=== PATIENT | female | born 1945 | race Caucasian/White ===

== ENCOUNTER 2017-02-21 03:55 | Observation (INO) | payer MEDICARE, BC ==
[2017-02-21] MEDS ORDERED: Lactated Ringers 1,000 ML IV ONE ×2 (04:40→06:31)
--- NOTE | 2017-02-21 04:51 | EDM.PDOC ---
ED HPI GENERAL MEDICAL PROBLEM - General Chief Complaint: Syncope Stated Complaint: WEAKNESS Time Seen by Provider: 02/21/17 04:30 Source of Information: Reports: Patient, Old Records, RN History Limitations: Reports: No Limitations - History of Present Illness INITIAL COMMENTS - FREE TEXT/NARRATIVE: 71 yo female who lives alone fell out of bed tonight and initially was unable to get herself up. Really did not incur any significant injuries in the fall. Was brought into the ED by a friend. States she has been unsteady and dizzy since yesterday. Is normally alert and oriented. No nausea or true vertigo. Had a COPELAND yesterday that resolved with Aleve. Onset: Gradual Onset Date: 02/20/17 Duration: Hour(s):, Constant Location: Reports: Head, Other (Mild low back pain, not new) Quality: Reports: Ache (low back) Severity: Moderate (dizziness) Improves with: Reports: Immobilization Worsens with: Reports: Movement Context: Reports: Other (uncertain cause of dizziness) Associated Symptoms: Reports: Headaches (yesterday, gone now.), Shortness of Breath (mild). 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 below) (none) denies when asked Pain Score (Numeric/FACES): 0 - Related Data Allergies Allergy/AdvReac Type Severity Reaction Status Date / Time celecoxib [From Celebrex] Allergy Unknown UNKNOWN Verified 02/21/17 04:12 Penicillins Allergy Unknown UNKNOWN Verified 02/21/17 04:12 citalopram [From Celexa] Allergy Rash Verified 02/21/17 12:03 Home Meds: Home Meds Carboxymethylcellulose Sodium [Refresh Tears] 1 appful OP ASDIRECTED PRN [History] ClonazePAM [KlonoPIN] 0.5 mg PO DAILY 02/21/17 [History] ClonazePAM [KlonoPIN] 1 mg PO BID PRN 02/21/17 [History] Desvenlafaxine [Pristiq] 50 mg PO 08,12 02/21/17 [History] Gabapentin [Neurontin] 900 mg PO TID 02/21/17 [History] L.acidoph,Paracasei, B.lactis [Probiotic] 1 each PO DAILY 02/21/17 [History] Loperamide [Imodium] 2 mg PO ASDIRECTED PRN 02/21/17 [History] Loratadine 10 mg PO DAILY 02/21/17 [History] Mirtazapine 30 mg PO BEDTIME 02/21/17 [History] Naproxen Sodium [Aleve] 220 mg PO BID 02/21/17 [History] risperiDONE [RisperiDAL] 1.5 mg PO 1200 02/21/17 [History] Social & Family History - Tobacco Use Smoking Status *Q: Never Smoker Second Hand Smoke Exposure: No - Caffeine Use Caffeine Use: Reports: Coffee - Recreational Drug Use Recreational Drug Use: No ED ROS GENERAL - Review of Systems Review Of Systems: See Below Constitutional: Denies: Fever, Chills HEENT: Reports: No Symptoms Respiratory: Reports: Shortness of Breath (mild). 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) Ears: Normal External Exam, Normal Canal, Normal TMs, Other (hearing poor) Nose: Normal Inspection, Normal Mucosa, No Blood Throat/Mouth: Normal Inspection, Normal Lips, Normal Oropharynx, Normal Voice, No Airway Compromise Head Exam: Atraumatic, Normocephalic Neck: Normal Inspection, Supple, Non-Tender Respiratory/Chest: No Respiratory Distress, Lungs Clear, Normal Breath Sounds, No Accessory Muscle Use Cardiovascular: Regular Rate, Rhythm, No Edema GI/Abdominal: Normal Bowel Sounds, Soft, Non-Tender, No Distention Neurological: Alert, Normal Mood/Affect, CN II-XII Intact, No Motor/Sensory Deficits, Oriented x 3, Other (Mild generalized weakness without focal deficits. ) Back Exam: Normal Inspection. No: CVA Tenderness (R), CVA Tenderness (L) Extremities: Normal Inspection, Normal Range of Motion, Non-Tender, No Pedal Edema Psychiatric: Normal Affect, Normal Mood Skin Exam: Warm, Dry, Intact, Normal Color, No Rash Course - Vital Signs Last Recorded V/S: Last Vital Signs Temp 36.8 C 02/21/17 10:05 Pulse 96 02/21/17 10:05 Resp 17 02/21/17 10:05 BP 135/59 L 02/21/17 10:05 Pulse Ox 93 L 02/21/17 10:05 Orthostatic Blood Pressure [ 98/52 Standing] Orthostatic Blood Pressure [ 94/40 Side, Right] Orthostatic Blood Pressure [ 98/55 Sitting] Orthostatic Blood Pressure [ 94/40 Supine] - Orders/Labs/Meds Orders: Active Orders 24 hr Category Date Time Status Patient Status Manage Transfer [TRANSFER] Routine ADT 02/21/17 09:42 Active Head wo Cont [CT] Stat Exams 02/21/17 08:07 Taken CULTURE URINE [RM] Stat Lab 02/21/17 07:25 Received VALPROIC ACID [REF] Stat Lab 02/21/17 04:55 Received Sodium Chloride 0.9% [Saline Flush] Med 02/21/17 04:40 Active 10 ml FLUSH ASDIRECTED PRN Saline Lock Insert [OM.PC] Routine Oth 02/21/17 04:40 Ordered Medication Orders Sodium Chloride (Normal Saline) 1,000 mls @ 100 mls/hr IV ASDIRECTED MARGRET Last Admin: 02/21/17 11:26 Dose: 100 mls/hr Sodium Chloride (Saline Flush) 10 ml FLUSH ASDIRECTED PRN PRN Reason: Keep Vein Open Last Admin: 02/21/17 11:25 Dose: 10 ml Trimethoprim/Sulfamethoxazole (Septra Ds) 1 tab PO BID [facility] Labs: Laboratory Tests 02/21/17 02/21/17 02/21/17 Range/Units 04:55 04:55 07:25 WBC 13.2 H (4.5-12.0) X10-3/uL RBC 4.57 (3.23-5.20) x10(6)uL Hgb 13.5 (11.5-15.5) g/dL Hct 39.6 (30.0-51.3) % MCV 86.7 (80-96) fL MCH 29.6 (27.7-33.6) pg MCHC 34.2 (32.2-35.4) g/dL RDW 12.2 (11.5-15.5) % Plt Count 235 (125-369) X10(3)uL Sodium 137 (135-145) mmol/L Potassium 4.0 (3.5-5.3) mmol/L Chloride 103 (100-110) mmol/L Carbon Dioxide 25 (23-29) mmol/L BUN 24 H D (8-23) mg/dL Creatinine 1.4 H (0.6-1.3) mg/dL Est Cr Clr Drug Dosing TNP Estimated GFR (MDRD) 37 L (>60) BUN/Creatinine Ratio 17.1 (9-20) Glucose 133 H (80-116) mg/dL Calcium 9.4 (8.6-10.2) mg/dL Urine Color Yellow (YELLOW) Urine Appearance Cloudy (CLEAR) Urine pH 5.0 (5.0-6.5) Ur Specific [place] 1.020 (1.010-1.025) Urine Protein Trace (NEGATIVE) mg/dL Urine Glucose (UA) Normal (NEGATIVE) mg/dL Urine Ketones 15 H (NEGATIVE) mg/dL Urine Occult Blood Negative (NEGATIVE) Urine Nitrite Positive H (NEGATIVE) Urine Bilirubin Small H (NEGATIVE) Urine Urobilinogen Normal (NEGATIVE) mg/dL Ur Leukocyte Esterase Large H (NEGATIVE) Urine RBC 0-5 (0) Urine WBC >100 H (0) Ur Squamous Epith Cells Few H (NS,R,O) Urine Bacteria Many H (NS) Meds: Medications Generic Name Dose Route Start Last Admin Trade Name Freq PRN Reason Stop Dose Admin Sodium Chloride 1,000 mls @ 100 mls/hr 02/21/17 10:45 02/21/17 11:26 Normal Saline IV 100 mls/hr ASDIRECTED MARGRET Administration Sodium Chloride 10 ml 02/21/17 04:40 02/21/17 11:25 Saline Flush FLUSH 10 ml ASDIRECTED PRN Administration Keep Vein Open Trimethoprim/Sulfamethoxazole 1 tab 02/21/17 21:00 Septra Ds PO BID MARGRET Discontinued Medications Generic Name Dose Route Start Last Admin Trade Name Freq PRN Reason Stop Dose Admin Lactated Ringer's 1,000 mls @ 1,000 mls/hr 02/21/17 04:40 02/21/17 05:05 Ringers, Lactated IV 02/21/17 05:39 1,000 mls/hr BOLUS ONE Administration Lactated Ringer's 1,000 mls @ 999 mls/hr 02/21/17 06:31 02/21/17 06:34 Ringers, Lactated IV 02/21/17 07:31 999 mls/hr BOLUS ONE Administration Trimethoprim/Sulfamethoxazole 1 tab 02/21/17 08:09 02/21/17 09:37 Septra Ds PO 02/21/17 08:10 1 tab ONETIME ONE Administration - Radiology Interpretation Free Text/Narrative:: CXR-negative Head CT-No acute changes Dr. Mccrary to admit. CT Results Date: 02/21/17 CT Results Time: 09:30 - Re-Assessments/Exams Free Text/Narrative Re-Assessment/Exam: 02/21/17 09:34 After 2 liters of LR patient is only slightly improved with her gait, still unsteady. Head CT scan planned. Departure - Departure Time of Disposition: 10:10 Disposition: Refer to Observation Condition: Fair Clinical Impression: Ataxia, Dizziness UTI (urinary tract infection) Qualifiers: Urinary tract infection type: site unspecified Hematuria presence: without hematuria Qualified Code(s): N39.0 - Urinary tract infection, site not specified - Discharge Information - My Orders Last 24 Hours: My Active Orders 02/21/17 04:40 Sodium Chloride 0.9% [Saline Flush] 10 ml FLUSH ASDIRECTED PRN Saline Lock Insert [OM.PC] Routine 02/21/17 04:55 VALPROIC ACID [REF] Stat 02/21/17 07:25 CULTURE URINE [RM] Stat 02/21/17 08:07 Head wo Cont [CT] Stat 02/21/17 09:42 Patient Status Manage Transfer [TRANSFER] Routine - Assessment/Plan Last 24 Hours: My Active Orders 02/21/17 04:40 Sodium Chloride 0.9% [Saline Flush] 10 ml FLUSH ASDIRECTED PRN Saline Lock Insert [OM.PC] Routine 02/21/17 04:55 VALPROIC ACID [REF] Stat 02/21/17 07:25 CULTURE URINE [RM] Stat 02/21/17 08:07 Head wo Cont [CT] Stat 02/21/17 09:42 Patient Status Manage Transfer [TRANSFER] Routine
[2017-02-21] MEDS ORDERED: Sulfamethoxazole/Trimethoprim 800-160 MG Tab PO ONE (08:09)
--- NOTE | 2017-02-21 10:20 | CR ---
INDICATION: Hypoxia. CHEST: An AP upright wheelchair view of the chest revealed the heart to be normal in size. The aorta is somewhat tortuous. Curvilinear density at the left lung base may be fibrotic in nature. Linear atelectatic change of minimal degree could be present also. A definite active infiltrate or effusion was not identified. No evidence of CHF is seen. Evidence of exogenous obesity is noted. IMPRESSION: No definite acute process. Minimal linear atelectasis versus fibrosis at the left lung base. MTDD
[2017-02-21] MEDS: Sodium Chloride 0.9% 10 ML Syringe FLUSH PRN ×2 (11:25→13:50)
[2017-02-21] MEDS: Sodium Chloride 0.9% 1,000 ML IV SCH ×2 (11:26→23:51)
[2017-02-21] MEDS ORDERED: ClonazePAM 1 MG Tab PO PRN (16:41)
[2017-02-21] MEDS ORDERED: Loperamide 2 MG Cap *PTOM PO PRN (16:41)
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
[2017-02-21] MEDS: Gabapentin 300 MG Cap *PTOM PO SCH (20:22)
[2017-02-21] MEDS: Sulfamethoxazole/Trimethoprim 800-160 MG Tab PO SCH (20:22)
[2017-02-21] MEDS: Tolterodine 2 MG Tab PO SCH (20:22)
[2017-02-21] MEDS ORDERED: Mirtazapine 30 MG Tab *PTOM PO SCH (21:00)
[2017-02-22 07:51] VITALS: BP 132/61
[2017-02-22] MEDS: DESVENLAFAXINE 50 MG PO SCH ×2 (08:03→13:31)
[2017-02-22] MEDS: Tolterodine 2 MG Tab PO SCH (08:04)
[2017-02-22] MEDS: Gabapentin 300 MG Cap *PTOM PO SCH (08:06)
[2017-02-22] MEDS: Sulfamethoxazole/Trimethoprim 800-160 MG Tab PO SCH (08:06)
--- NOTE | 2017-02-22 08:09 | PCM.PN ---
- General Info Date of Service: 02/22/17 Admission Dx/Problem (Free Text): Patient without complaints today. She states her weakness is just about gone. She denies being dizzy, chest pain, fevers or chills. She denies dysuria, pyuria , hematuria. - Patient Data Vitals - Most Recent: Last Vital Signs Temp 98.6 F 02/22/17 07:49 Pulse 79 02/22/17 07:49 Resp 20 02/22/17 07:49 BP 132/61 02/22/17 07:49 Pulse Ox 96 02/22/17 07:49 Weight - Most Recent: 194 lb 9.6 oz I&O - Last 24 Hours: Intake & Output 02/21/17 02/22/17 02/22/17 22:59 06:59 14:59 Intake Total 240 890 Balance 240 890 Lab Results Last 24 Hours: Laboratory Results - last 24 hr 02/22/17 Range/Units 06:50 WBC 12.3 H (4.5-12.0) X10-3/uL RBC 4.38 (3.23-5.20) x10(6)uL Hgb 12.9 (11.5-15.5) g/dL Hct 38.2 (30.0-51.3) % MCV 87.2 (80-96) fL MCH 29.5 (27.7-33.6) pg MCHC 33.8 (32.2-35.4) g/dL RDW 12.4 (11.5-15.5) % Plt Count 220 (125-369) X10(3)uL MPV 8.9 (7.4-10.4) fL Neut % (Auto) 65.6 (46-82) % Lymph % (Auto) 20.6 (13-37) % [place] % (Auto) 11.2 (4-12) % Eos % (Auto) 2 (1.0-5.0) % Baso % (Auto) 1 (0-2) % Neut # (Auto) 8.1 (1.6-8.3) # Lymph # (Auto) 2.5 (0.6-5.0) # [place] # (Auto) 1.4 H (0.0-1.3) # Eos # (Auto) 0.2 (0.0-0.8) # Baso # (Auto) 0.1 (0.0-0.2) # Med Orders - Current: Current Medications Clonazepam (Klonopin) 0.5 mg PO DAILY [facility] Clonazepam (Klonopin) 1 mg PO BID PRN PRN Reason: Anxiety Desvenlafaxine Succinate (Pristiq) 50 mg PO 08, [facility] Last Admin: 02/22/17 08:03 Dose: 50 mg Gabapentin (Neurontin) 900 mg PO TID [facility] Last Admin: 02/22/17 08:06 Dose: 900 mg Sodium Chloride (Normal Saline) 1,000 mls @ 100 mls/hr IV ASDIRECTED [facility] Last Admin: 02/21/17 23:51 Dose: 100 mls/hr Loperamide HCl (Imodium) 2 mg PO ASDIRECTED PRN PRN Reason: Diarrhea Loratadine (Claritin) 10 mg PO DAILY [facility] Last Admin: 02/22/17 08:04 Dose: 10 mg Mirtazapine (Remeron) 30 mg PO BEDTIME [facility] Last Admin: 02/21/17 20:22 Dose: 30 mg Naproxen (Naproxen Sodium) 220 mg PO BID [facility] Last Admin: 02/22/17 08:06 Dose: 220 mg Acidophilus Probiotic 100 Million Ptom 1 each PO DAILY [facility] Last Admin: 02/22/17 08:05 Dose: 1 each Risperidone (Risperidal) 1.5 mg PO 1200 [facility] Sodium Chloride (Saline Flush) 10 ml FLUSH ASDIRECTED PRN PRN Reason: Keep Vein Open Last Admin: 02/21/17 13:50 Dose: 10 ml Tolterodine Tartrate (Detrol) 2 mg PO BID [facility] Last Admin: 02/22/17 08:04 Dose: 2 mg Trimethoprim/Sulfamethoxazole (Septra Ds) 1 tab PO BID [facility] Last Admin: 02/22/17 08:06 Dose: 1 tab Discontinued Medications Lactated Ringer's (Ringers, Lactated) 1,000 mls @ 1,000 mls/hr IV BOLUS ONE Stop: 02/21/17 05:39 Last Admin: 02/21/17 05:05 Dose: 1,000 mls/hr Lactated Ringer's (Ringers, Lactated) 1,000 mls @ 999 mls/hr IV BOLUS ONE Stop: 02/21/17 07:31 Last Admin: 02/21/17 06:34 Dose: 999 mls/hr Trimethoprim/Sulfamethoxazole (Septra Ds) 1 tab PO ONETIME ONE Stop: 02/21/17 08:10 Last Admin: 02/21/17 09:37 Dose: 1 tab - Exam General: Alert, Oriented, Cooperative Psy/Mental Status: Alert, Normal Affect, Normal Mood - Problem List & Annotations (1) Hyperglycemia SNOMED Code(s): 36397327 Code(s): R73.9 - HYPERGLYCEMIA, UNSPECIFIED Status: Acute Current Visit: Yes (2) Acute renal failure SNOMED Code(s): 49111676 Code(s): N17.9 - ACUTE KIDNEY FAILURE, UNSPECIFIED Status: Acute Current Visit: Yes (3) Dehydration SNOMED Code(s): 37336344 Code(s): E86.0 - DEHYDRATION Status: Acute Current Visit: Yes (4) Palliative care status SNOMED Code(s): 923209141 Code(s): Z51.5 - ENCOUNTER FOR PALLIATIVE CARE Status: Acute Current Visit: Yes (5) Dizziness SNOMED Code(s): 575207813, 034174038 Code(s): R42 - DIZZINESS AND GIDDINESS Status: Acute Current Visit: Yes (6) UTI (urinary tract infection) SNOMED Code(s): 75749221 Code(s): N39.0 - URINARY TRACT INFECTION, SITE NOT SPECIFIED Status: Acute Current Visit: Yes Qualifiers: Urinary tract infection type: site unspecified Hematuria presence: without hematuria Qualified Code(s): N39.0 - Urinary tract infection, site not specified - Problem List Review Problem List Initiated/Reviewed/Updated: Yes - My Orders Last 24 Hours: My Active Orders 02/21/17 10:00 Admission Status [Patient Status] [ADT] Routine 02/21/17 10:45 Sodium Chloride 0.9% [Normal Saline] 1,000 ml IV ASDIRECTED 02/21/17 16:41 ClonazePAM [KlonoPIN] 1 mg PO BID PRN Loperamide [Imodium] 2 mg PO ASDIRECTED PRN 02/21/17 21:00 Gabapentin [Neurontin] 900 mg PO TID Mirtazapine [Remeron] 30 mg PO BEDTIME Naproxen Sodium 220 mg PO BID Sulfamethoxazole/Trimethoprim [Septra DS] 1 tab PO BID Tolterodine [Detrol] 2 mg PO BID 02/21/17 Lunch Regular Diet [DIET] 02/22/17 08:00 Desvenlafaxine [Pristiq] 50 mg PO 02/22/17 09:00 ClonazePAM [KlonoPIN] 0.5 mg PO DAILY L.acidoph,Paracasei, B.lactis [Probiotic] 1 each PO DAILY Loratadine [Claritin] 10 mg PO DAILY 02/22/17 12:00 risperiDONE [RisperiDAL] 1.5 mg PO 1200 02/23/17 06:00 BASIC METABOLIC PANEL,BMP [CHEM] AM - Plan Plan:: 1. Discharge to home on Bactrim DS twice a day for 10 days.
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
[2017-02-22] MEDS ORDERED: Loratadine 10 MG Tab PO SCH (09:00)
[2017-02-22] MEDS ORDERED: ClonazePAM 0.5 MG Tab PO SCH (09:00)
[2017-02-22] MEDS ORDERED: ACIDOPHILUS PROBIOTIC PO SCH (09:00)
[2017-02-22] MEDS ORDERED: risperiDONE 0.5 MG Tab PO SCH (12:00)
== END 2017-02-22 12:50 | disposition home or self-care (01) ==
LOC: FB.ED 03:55 → FB.MS 09:48
PROVIDERS: ADMIT Family Medicine; ATTEND Family Medicine
DX: R73.9 Hyperglycemia, unspecified (principal); N17.9 Acute kidney failure, unspecified; E86.0 Dehydration; R42 Dizziness and giddiness; N39.0 Urinary tract infection, site not specified; F41.9 Anxiety disorder, unspecified; F32.9 Major depressive disorder, single episode, unspecified; Z51.5 Encounter for palliative care; Z88.0 Allergy status to penicillin; Z88.8 Allergy status to other drugs, medicaments and biological substances; Z79.899 Other long term (current) drug therapy; Z98.890 Other specified postprocedural states
CPT/HCPCS: 36415; 70450; 71010; 80048; 80164; 81001; 85025; 85027; 87086; 87088; 87186; 96360; 96361; 99285; A9270; G0378; J7040; J7050; J7120; 99217; 99220; 99284

== ENCOUNTER 2017-10-17 11:07 | Emergency (ER) | payer MEDICARE, BC ==
--- NOTE | 2017-10-17 11:55 | EDM.PDOC ---
ED HPI GENERAL MEDICAL PROBLEM - General Chief Complaint: General Stated Complaint: WEAKNESS Time Seen by Provider: 10/17/17 11:46 Source of Information: Reports: Patient History Limitations: Reports: No Limitations - History of Present Illness INITIAL COMMENTS - FREE TEXT/NARRATIVE: c/o anxiety anxious in past day, laid in bed all day yesterday but still was nervous, slept well last night, eating 3 meals a day no pain or other sxs no insight into her own anxiety had seen her [place] psychiatrist 2w ago, he began her on Vraylar, she took 4 doses and she felt more nervous and stopped it she says "he should have told me", externalizes her feelings had an appointment this week with her psychiatrist but cancelled and rescheduled for 2w, says she is too busy this week to see him, 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 is alienated form her 4 children and 10 grandchildren, 3 children live in [facility], 1 child in [place], [place] still drives, says she won't drive to [place], that it is too far here with a friend - Related Data Allergies Allergy/AdvReac Type Severity Reaction Status Date / Time Penicillins Allergy Unknown Shaking Verified 10/17/17 11:40 duloxetine [From Cymbalta] Allergy Hives Verified 10/17/17 11:40 Home Meds: Home Meds Carboxymethylcellulose Sodium [Refresh Tears] 1 appful OP ASDIRECTED PRN [History] ClonazePAM [KlonoPIN] 0.5 mg PO DAILY 02/21/17 [History] ClonazePAM [KlonoPIN] 1 mg PO BID PRN 02/21/17 [History] Desvenlafaxine [Pristiq] 50 mg PO 02/21/17 [History] Gabapentin [Neurontin] 900 mg PO TID 02/21/17 [History] L.acidoph,Paracasei, B.lactis [Probiotic] 1 each PO DAILY 02/21/17 [History] Loperamide [Imodium] 2 mg PO ASDIRECTED PRN 02/21/17 [History] Loratadine 10 mg PO DAILY 02/21/17 [History] Mirtazapine 30 mg PO BEDTIME 02/21/17 [History] Naproxen Sodium [Aleve] 220 mg PO BID 02/21/17 [History] Tolterodine [Detrol] 2 mg PO BID 02/21/17 [History] Sulfamethoxazole/Trimethoprim [IJD: Sulfamethoxazole/Trimethoprim DS] 1 tab PO BID #18 tablet 02/22/17 [Rx] LORazepam 1 mg PO TID PRN 10/17/17 [History] risperiDONE 2 mg PO BID 10/17/17 [History] Past Medical History HEENT History: Reports: Hard of Hearing, Other (See Below) Other HEENT History: artificial/rubber left eye, deaf in left ear Genitourinary History: Reports: Other (See Below) Other Genitourinary History: UTI 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: Reports: , Other (See Below) Other OB/BYN History: 4 pregnancies Musculoskeletal History: Reports: Other (See Below) Other Musculoskeletal History: occasional tremors on bilateral feet and legs Neurological History: Reports: Other (See Below) Other Neuro History: 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 Psychiatric History: Reports: Anxiety, Depression Endocrine/Metabolic History: Reports: Obesity/BMI 30+ - Past Surgical History Head Surgeries/Procedures: Reports: Shunt HEENT Surgical History: Reports: Cataract Surgery, Other (See Below) Other HEENT Surgeries/Procedures: right eye Female Surgical History: Reports: None Neurological Surgical History: Reports: Other (See Below) Musculoskeletal Surgical History: Reports: None Social & Family History - Family History Family Medical History: Noncontributory Other Oncologic Family History: mother of CA in 1994; pt unsure about what kind of CA - Tobacco Use Smoking Status *Q: Never Smoker - Caffeine Use Caffeine Use: Reports: Coffee Other Caffeine Use: 1 cup a day - Recreational Drug Use Recreational Drug Use: No ED ROS GENERAL - Review of Systems Review Of Systems: See Below Constitutional: Reports: No Symptoms HEENT: Reports: No Symptoms Respiratory: Reports: No Symptoms Cardiovascular: Reports: No Symptoms Endocrine: Reports: No Symptoms GI/Abdominal: Reports: No Symptoms : Reports: No Symptoms Musculoskeletal: Reports: No Symptoms Skin: Reports: No Symptoms Neurological: Reports: No Symptoms Psychiatric: Reports: Anxiety Hematologic/Lymphatic: Reports: No Symptoms Immunologic: Reports: No Symptoms ED EXAM, GENERAL - Physical Exam Exam: See Below Exam Limited By: No Limitations General Appearance: Alert, WD/WN, No Apparent Distress Ears: Normal External Exam Nose: Normal Inspection, Normal Mucosa, No Blood Throat/Mouth: Normal Inspection, Normal Lips, Normal Teeth, Normal Gums, Normal Oropharynx, Normal Voice, No Airway Compromise Head: Atraumatic, Normocephalic Neck: Normal Inspection, Supple, Non-Tender, Full Range of Motion Respiratory/Chest: No Respiratory Distress, Lungs Clear, Normal Breath Sounds, No Accessory Muscle Use, Chest Non-Tender Cardiovascular: Regular Rate, Rhythm, No Edema, No Gallop, No Rub GI/Abdominal: Soft, Non-Tender, No Distention Back Exam: Normal Inspection, Full Range of Motion, NT Extremities: Normal Inspection, Normal Range of Motion, Non-Tender, No Pedal Edema Neurological: Alert, Other (glass eye on L, facial asymmetry, wig) Psychiatric: Other (does not appear anxious, cooperative, nl speech, good eye contact, no SI/HI, answer questions, no insight, no motivation to take specific steps to help herself, has no strategies for dealing with her anxiety) Skin Exam: Warm, Dry, Intact, Normal Color, No Rash Lymphatic: No Adenopathy Course - Vital Signs Last Recorded V/S: Last Vital Signs Temp 36.9 C 10/17/17 11:10 Pulse 89 10/17/17 11:10 Resp 18 10/17/17 11:10 BP 122/58 L 10/17/17 11:10 Pulse Ox 96 10/17/17 11:10 - Re-Assessments/Exams Free Text/Narrative Re-Assessment/Exam: 10/17/17 12:04 no active medical issues identified, no sxs except anxiety, PE neg, vss Departure - Departure Time of Disposition: 11:58 Disposition: Home, Self-Care 01 Condition: Good Clinical Impression: Chronic anxiety - Discharge Information Instructions: Living With Anxiety Referrals: Nestor Soliman MD [Primary Care Provider] - Additional Instructions: Call your psychiatrist for further recommendations regarding your anxiety. See your psychiatrist in the next week. Make time in your schedule to do so. Arrange to see a counselor, which either your psychiatrist or Dr Soliman can assist you in doing.
[2017-10-17 12:25] VITALS: BP 119/54
== END 2017-10-17 12:10 | disposition home or self-care (01) ==
LOC: FB.ED 11:07
DX: F41.9 Anxiety disorder, unspecified (principal); E66.9 Obesity, unspecified; Z88.0 Allergy status to penicillin; Z88.8 Allergy status to other drugs, medicaments and biological substances; Z79.899 Other long term (current) drug therapy
CPT/HCPCS: 99282

== ENCOUNTER 2020-02-17 17:16 | Emergency (ER) | payer MEDICARE, BC ==
[2020-02-17] MEDS ORDERED: Sodium Chloride 0.9% 10 ML Syringe FLUSH PRN (17:24)
--- NOTE | 2020-02-17 17:24 | EDM.PDOC ---
ED HPI GENERAL MEDICAL PROBLEM - General Time Seen by Provider: 02/17/20 17:22 Source of Information: Reports: Patient History Limitations: Reports: No Limitations - History of Present Illness INITIAL COMMENTS - FREE TEXT/NARRATIVE: Alondra complains of dry mouth since last night. Having a hard time swallowing. Also has fallen a couple of times as reported by her friend. She was last admitted in 2017 for dehydration. - Related Data Allergies Allergy/AdvReac Type Severity Reaction Status Date / Time Penicillins Allergy Unknown Shaking Verified 10/17/17 11:40 duloxetine [From Cymbalta] Allergy Hives Verified 10/17/17 11:40 Home Meds: Home Meds Carboxymethylcellulose Sodium [Refresh Tears] 1 appful OP ASDIRECTED PRN 02/21/17 [History] Desvenlafaxine [Pristiq] 50 mg PO 02/21/17 [History] Gabapentin [Neurontin] 900 mg PO BID 02/21/17 [History] L.acidoph,Paracasei, B.lactis [Probiotic] 1 each PO DAILY 02/21/17 [History] Loperamide [Imodium] 2 mg PO ASDIRECTED PRN 02/21/17 [History] Loratadine 10 mg PO DAILY 02/21/17 [History] Mirtazapine 30 mg PO BEDTIME 02/21/17 [History] Naproxen Sodium [Aleve] 220 mg PO BID 02/21/17 [History] Tolterodine [Detrol] 2 mg PO BID 02/21/17 [History] LORazepam 1 mg PO TID PRN 10/17/17 [History] risperiDONE 2 mg PO BID 10/17/17 [History] Past Medical History HEENT History: Reports: Hard of Hearing, Other (See Below) Other HEENT History: artificial/rubber left eye, deaf in left ear Genitourinary History: Reports: Other (See Below) Other Genitourinary History: UTI RN CARDIAC REHAB History: Reports: Other (See Below), Other RN CARDIAC REHAB History: 4 pregnancies Musculoskeletal History: Reports: Other (See Below) Other Musculoskeletal History: occasional tremors on bilateral feet and legs Neurological History: Reports: Other (See Below) 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 Psychiatric History: Reports: Anxiety, Depression Endocrine/Metabolic History: Reports: Obesity/BMI 30+ - Past Surgical History Head Surgeries/Procedures: Reports: Shunt HEENT Surgical History: Reports: Cataract Surgery, Other (See Below) Other HEENT Surgeries/Procedures: right eye Female Surgical History: Reports: None Neurological Surgical History: Reports: Other (See Below) Musculoskeletal Surgical History: Reports: None Social & Family History - Family History Family Medical History: Noncontributory Other Oncologic Family History: mother of CA in 1994; pt unsure about what kind of CA - Caffeine Use Caffeine Use: Reports: Coffee Other Caffeine Use: 1 cup a day ED ROS GENERAL - Review of Systems Review Of Systems: Comprehensive ROS is negative, except as noted in HPI. ED EXAM, GENERAL - Physical Exam Exam: See Below Exam Limited By: No Limitations General Appearance: Alert, No Apparent Distress Ears: Normal External Exam Nose: Normal Inspection Throat/Mouth: Normal Inspection Head: Atraumatic Respiratory/Chest: No Respiratory Distress Cardiovascular: Normal Peripheral Pulses GI/Abdominal: Normal Bowel Sounds, Soft Back Exam: Normal Inspection Extremities: Normal Inspection Neurological: Alert, Oriented Psychiatric: Normal Affect Skin Exam: Dry Course - Vital Signs Last Recorded V/S: Last Vital Signs Temp 99.3 F 02/17/20 17:24 Pulse 81 02/17/20 18:53 Resp 16 02/17/20 18:53 BP 116/62 02/17/20 18:53 Pulse Ox 96 02/17/20 18:53 - Orders/Labs/Meds Orders: Active Orders 24 hr Category Date Time Status Sodium Chloride 0.9% [Normal Saline] 1,000 ml Med 02/17/20 17:30 Active IV ASDIRECTED Sodium Chloride 0.9% [Saline Flush] Med 02/17/20 17:24 Active 10 ml FLUSH ASDIRECTED PRN Peripheral IV Insertion Adult [OM.PC] Routine Oth 02/17/20 17:24 Ordered Medication Orders Sodium Chloride (Normal Saline) 1,000 mls @ 999 mls/hr IV ASDIRECTED MARGRET Last Admin: 02/17/20 17:52 Dose: 999 mls/hr Documented by: MILIND Sodium Chloride (Saline Flush) 10 ml FLUSH ASDIRECTED PRN PRN Reason: Keep Vein Open Last Admin: 02/17/20 17:53 Dose: 10 ml Documented by: MILIND Labs: Laboratory Tests 02/17/20 02/17/20 Range/Units 17:30 17:30 WBC 14.6 H (4.5-12.0) X10-3/uL RBC 4.70 (3.23-5.20) x10(6)uL Hgb 13.5 (11.5-15.5) g/dL Hct 40.8 (30.0-51.3) % MCV 86.8 (80-96) fL MCH 28.7 (27.7-33.6) pg MCHC 33.1 (32.2-35.4) g/dL RDW 12.7 (11.5-15.5) % Plt Count 352 (125-369) X10(3)uL MPV 7.9 (7.4-10.4) fL Neut % (Auto) 84.4 H (46-82) % Lymph % (Auto) 6.1 L (13-37) % [place] % (Auto) 8.7 (4-12) % Eos % (Auto) 0 L (1.0-5.0) % Baso % (Auto) 1 (0-2) % Neut # (Auto) 12.3 H (1.6-8.3) # Lymph # (Auto) 0.9 (0.6-5.0) # [place] # (Auto) 1.3 (0.0-1.3) # Eos # (Auto) 0.0 (0.0-0.8) # Baso # (Auto) 0.1 (0.0-0.2) # Sodium 137 (135-145) mmol/L Potassium 3.6 (3.5-5.3) mmol/L Chloride 99 L (100-110) mmol/L Carbon Dioxide 26 (21-32) mmol/L BUN 18 (7-18) mg/dL Creatinine 0.9 (0.55-1.02) mg/dL Est Cr Clr Drug Dosing TNP Estimated GFR (MDRD) > 60 (>60) BUN/Creatinine Ratio 20.0 (9-20) Glucose 124 H (80-116) mg/dL Calcium 8.7 (8.6-10.2) mg/dL Meds: Medications Generic Name Dose Route Start Last Admin Trade Name Freq PRN Reason Stop Dose Admin Sodium Chloride 1,000 mls @ 999 mls/hr 02/17/20 17:30 02/17/20 17:52 Normal Saline IV 999 mls/hr ASDIRECTED MARGRET Administration Sodium Chloride 10 ml 02/17/20 17:24 02/17/20 17:53 Saline Flush FLUSH 10 ml ASDIRECTED PRN Administration Keep Vein Open Departure - Departure Time of Disposition: 19:02 Disposition: Home, Self-Care 01 Condition: Good Clinical Impression: Chronic anxiety, Dehydration, Dry mouth - Discharge Information Instructions: Dehydration, Elderly Referrals: PCP,None [Ordering Only Provider] - 1 Day Forms: ED Department Discharge Additional Instructions: Read discharge instructions. Follow up with primary care physician tomorrow. Sepsis Event Note (ED) - Focused Exam Vital Signs: Vital Signs Temp Pulse Resp BP Pulse Ox 02/17/20 18:53 81 16 116/62 96 02/17/20 17:24 99.3 F 102 H 18 141/51 H 97 - Problem List & Annotations (1) Dry mouth SNOMED Code(s): 12866193 Code(s): R68.2 - DRY MOUTH, UNSPECIFIED Status: Acute Current Visit: No - Problem List Review Problem List Initiated/Reviewed/Updated: Yes - My Orders Last 24 Hours: My Active Orders 02/17/20 17:24 Sodium Chloride 0.9% [Saline Flush] 10 ml FLUSH ASDIRECTED PRN Peripheral IV Insertion Adult [OM.PC] Routine 02/17/20 17:30 Sodium Chloride 0.9% [Normal Saline] 1,000 ml IV ASDIRECTED - Assessment/Plan Last 24 Hours: My Active Orders 02/17/20 17:24 Sodium Chloride 0.9% [Saline Flush] 10 ml FLUSH ASDIRECTED PRN Peripheral IV Insertion Adult [OM.PC] Routine 02/17/20 17:30 Sodium Chloride 0.9% [Normal Saline] 1,000 ml IV ASDIRECTED Plan: Her BMP was normal. Her WBC was slightly increased. Vital sings were all normal. I gave her 1 L of NS. DC home,follow up in 1 day
[2020-02-17] MEDS ORDERED: Sodium Chloride 0.9% 1,000 ML IV SCH (17:30)
[2020-02-17 18:54] VITALS: BP 116/62; PULSE 81
== END 2020-02-17 19:02 | disposition home or self-care (01) ==
LOC: FB.ED 17:16
DX: E86.0 Dehydration (principal); F41.9 Anxiety disorder, unspecified; E66.9 Obesity, unspecified; Z88.0 Allergy status to penicillin; Z88.8 Allergy status to other drugs, medicaments and biological substances; Z79.899 Other long term (current) drug therapy
CPT/HCPCS: 36415; 80048; 85025; 96360; 99284; J7030

== ENCOUNTER 2021-10-30 19:56 | Emergency (ER) | payer BC, MEDICAID, MEDICARE ==
[2021-10-30] MEDS ORDERED: Ketorolac 30 MG/ML SDV IM ONE (20:38)
[2021-10-30] MEDS ORDERED: Sodium Chloride 0.9% 10 ML Syringe FLUSH PRN (23:08)
[2021-10-30] MEDS ORDERED: Ondansetron 4 MG/2 ML SDV IVPUSH ONE (23:35)
[2021-10-30] MEDS ORDERED: Morphine 2 MG/ML SYRINGE IVPUSH ONE (23:36)
[2021-10-31] MEDS ORDERED: Ciprofloxacin 500 MG Tab PO ONE (00:14)
[2021-10-31 00:45] VITALS: BP 113/62; PULSE 84
== END 2021-10-31 00:25 ==
LOC: FB.ED 19:56
DX: S72.145A Nondisplaced intertrochanteric fracture of left femur, initial encounter for closed fracture (principal); E66.9 Obesity, unspecified; Z68.34 Body mass index [BMI] 34.0-34.9, adult; Z79.899 Other long term (current) drug therapy; Z88.0 Allergy status to penicillin; Z88.6 Allergy status to analgesic agent; Z88.8 Allergy status to other drugs, medicaments and biological substances; Z20.822 Contact with and (suspected) exposure to COVID-19; W18.39XA Other fall on same level, initial encounter
CPT/HCPCS: 36415; 51702; 70450; 72125; 73502-LT; 80053; 81001; 85025; 87086; 87088; 87186; 96372; 96374; 96375; 99284; 99285-25; A9270-GY; J1885; J2270; J2405; J3490; U0002

== ENCOUNTER 2021-11-04 09:46 | Inpatient (IN) | payer MEDICARE ==
[2021-11-04] MEDS ORDERED: Magnesium Hydroxide 400 MG/5 ML Susp 30 ML Cup PO PRN (13:45)
[2021-11-04] MEDS ORDERED: Ondansetron 4 MG Tab.DIS PO PRN (13:45)
[2021-11-04] MEDS: ClonazePAM 1 MG Tab PO PRN (16:01)
[2021-11-04] MEDS: Acetaminophen 325 MG Tab PO SCH ×2 (16:01→20:35)
[2021-11-04] MEDS: Lutein/Minerals/Vitamin C/Vitamin E Acetate Cap PO SCH (18:04)
[2021-11-04] MEDS: Mirtazapine 15 MG Tab PO SCH (20:36)
[2021-11-04] MEDS: Carboxymethylcellulose Sodium 0.5% Ophth Soln 15 ML Bottle EYERT SCH (20:36)
[2021-11-04] MEDS: Aspirin 325 MG Tab.EC PO SCH (20:36)
[2021-11-05] MEDS: Acetaminophen 325 MG Tab PO SCH ×4 (02:48→20:44)
[2021-11-05] MEDS: Pantoprazole 40 MG Tab.CR PO SCH (05:58)
[2021-11-05] MEDS: oxyCODONE 5 MG Tab PO PRN (06:17)
[2021-11-05] MEDS: Ascorbic Acid 500 MG Tab PO SCH (08:49)
[2021-11-05] MEDS: Lutein/Minerals/Vitamin C/Vitamin E Acetate Cap PO SCH ×2 (08:49→17:44)
[2021-11-05] MEDS: amLODIPine 5 MG Tab PO SCH (08:49)
[2021-11-05] MEDS: Aspirin 325 MG Tab.EC PO SCH ×2 (08:49→20:45)
[2021-11-05] MEDS: Ferrous Sulfate 325 MG Tab PO SCH (08:49)
[2021-11-05] MEDS: Desvenlafaxine 50 MG Tab.ER PO SCH (08:50)
[2021-11-05] MEDS: Multivitamins with Iron/Calcium/Folic Acid/Minerals Tab PO SCH (08:50)
[2021-11-05] MEDS: Carboxymethylcellulose Sodium 0.5% Ophth Soln 15 ML Bottle EYERT SCH ×2 (08:50→20:44)
[2021-11-05] MEDS: Gabapentin 300 MG Cap PO SCH (09:09)
[2021-11-05] MEDS: Mirtazapine 15 MG Tab PO SCH (20:44)
[2021-11-06] MEDS: Acetaminophen 325 MG Tab PO SCH ×4 (04:00→20:14)
[2021-11-06] MEDS: Pantoprazole 40 MG Tab.CR PO SCH (05:27)
[2021-11-06] MEDS: Loperamide 2 MG Cap PO PRN ×2 (06:33→20:35)
[2021-11-06] MEDS: Lutein/Minerals/Vitamin C/Vitamin E Acetate Cap PO SCH ×2 (08:19→18:06)
[2021-11-06] MEDS: Aspirin 325 MG Tab.EC PO SCH ×2 (08:19→20:14)
[2021-11-06] MEDS: Multivitamins with Iron/Calcium/Folic Acid/Minerals Tab PO SCH (08:19)
[2021-11-06] MEDS: amLODIPine 5 MG Tab PO SCH (08:20)
[2021-11-06] MEDS: Carboxymethylcellulose Sodium 0.5% Ophth Soln 15 ML Bottle EYERT SCH ×2 (08:20→20:15)
[2021-11-06] MEDS: Ascorbic Acid 500 MG Tab PO SCH (08:20)
[2021-11-06] MEDS: Ferrous Sulfate 325 MG Tab PO SCH (08:21)
[2021-11-06] MEDS: Desvenlafaxine 50 MG Tab.ER PO SCH (08:22)
[2021-11-06] MEDS: Gabapentin 300 MG Cap PO SCH (08:44)
[2021-11-06] MEDS: oxyCODONE 5 MG Tab PO PRN (15:58)
[2021-11-06] MEDS: Diclofenac Sodium 1% Gel 100 GM Tube TOP PRN (18:08)
[2021-11-06] MEDS: Mirtazapine 15 MG Tab PO SCH (20:14)
[2021-11-07] MEDS: Acetaminophen 325 MG Tab PO SCH ×5 (03:20→21:06)
[2021-11-07] MEDS: Pantoprazole 40 MG Tab.CR PO SCH (05:03)
[2021-11-07] MEDS: Loperamide 2 MG Cap PO PRN (05:03)
[2021-11-07] MEDS: Lutein/Minerals/Vitamin C/Vitamin E Acetate Cap PO SCH ×2 (07:37→17:38)
[2021-11-07] MEDS: Aspirin 325 MG Tab.EC PO SCH ×2 (08:08→21:07)
[2021-11-07] MEDS: Ascorbic Acid 500 MG Tab PO SCH (08:08)
[2021-11-07] MEDS: Ferrous Sulfate 325 MG Tab PO SCH (08:08)
[2021-11-07] MEDS: Desvenlafaxine 50 MG Tab.ER PO SCH (08:08)
[2021-11-07] MEDS: Multivitamins with Iron/Calcium/Folic Acid/Minerals Tab PO SCH (08:08)
[2021-11-07] MEDS: amLODIPine 5 MG Tab PO SCH (08:09)
[2021-11-07] MEDS: Carboxymethylcellulose Sodium 0.5% Ophth Soln 15 ML Bottle EYERT SCH ×2 (08:09→21:07)
[2021-11-07] MEDS: Gabapentin 300 MG Cap PO SCH (08:13)
[2021-11-07] MEDS: Diclofenac Sodium 1% Gel 100 GM Tube TOP PRN (17:39)
[2021-11-07] MEDS: Mirtazapine 15 MG Tab PO SCH (21:05)
[2021-11-08] MEDS: Loperamide 2 MG Cap PO PRN ×2 (01:29→07:40)
[2021-11-08] MEDS: Pantoprazole 40 MG Tab.CR PO SCH (05:23)
[2021-11-08] MEDS ORDERED: Loperamide 2 MG Cap PO PRN (06:00)
[2021-11-08] MEDS: Aspirin 325 MG Tab.EC PO SCH ×2 (08:14→21:39)
[2021-11-08] MEDS: Desvenlafaxine 50 MG Tab.ER PO SCH (08:15)
[2021-11-08] MEDS: Multivitamins with Iron/Calcium/Folic Acid/Minerals Tab PO SCH (08:15)
[2021-11-08] MEDS: amLODIPine 5 MG Tab PO SCH (08:15)
[2021-11-08] MEDS: Lutein/Minerals/Vitamin C/Vitamin E Acetate Cap PO SCH ×2 (08:15→17:23)
[2021-11-08] MEDS: Ferrous Sulfate 325 MG Tab PO SCH (08:16)
[2021-11-08] MEDS: Acetaminophen 325 MG Tab PO SCH ×3 (08:16→21:39)
[2021-11-08] MEDS: Ascorbic Acid 500 MG Tab PO SCH (08:16)
[2021-11-08] MEDS: Carboxymethylcellulose Sodium 0.5% Ophth Soln 15 ML Bottle EYERT SCH ×2 (08:16→21:38)
[2021-11-08] MEDS: Gabapentin 300 MG Cap PO SCH (08:18)
[2021-11-08] MEDS: oxyCODONE 5 MG Tab PO PRN ×2 (13:28→21:41)
[2021-11-08] MEDS: Diclofenac Sodium 1% Gel 100 GM Tube TOP PRN (17:23)
[2021-11-08] MEDS: Mirtazapine 15 MG Tab PO SCH (21:39)
[2021-11-08] MEDS: ClonazePAM 1 MG Tab PO PRN (21:41)
[2021-11-09] MEDS: Pantoprazole 40 MG Tab.CR PO SCH (06:16)
[2021-11-09] MEDS: Aspirin 325 MG Tab.EC PO SCH ×2 (08:49→20:27)
[2021-11-09] MEDS: Lutein/Minerals/Vitamin C/Vitamin E Acetate Cap PO SCH ×2 (08:49→18:26)
[2021-11-09] MEDS: amLODIPine 5 MG Tab PO SCH (08:50)
[2021-11-09] MEDS: Ferrous Sulfate 325 MG Tab PO SCH (08:50)
[2021-11-09] MEDS: Desvenlafaxine 50 MG Tab.ER PO SCH (08:51)
[2021-11-09] MEDS: Acetaminophen 325 MG Tab PO SCH ×3 (08:52→20:28)
[2021-11-09] MEDS: Carboxymethylcellulose Sodium 0.5% Ophth Soln 15 ML Bottle EYERT SCH ×2 (08:52→20:28)
[2021-11-09] MEDS: Multivitamins with Iron/Calcium/Folic Acid/Minerals Tab PO SCH (08:52)
[2021-11-09] MEDS: Ascorbic Acid 500 MG Tab PO SCH (08:53)
[2021-11-09] MEDS: Gabapentin 300 MG Cap PO SCH (08:57)
[2021-11-09] MEDS: Mirtazapine 15 MG Tab PO SCH (20:28)
[2021-11-09] MEDS: Loperamide 2 MG Cap PO PRN (20:34)
[2021-11-09] MEDS: ClonazePAM 1 MG Tab PO PRN (20:34)
[2021-11-10] MEDS: Pantoprazole 40 MG Tab.CR PO SCH (05:17)
[2021-11-10] MEDS: Lutein/Minerals/Vitamin C/Vitamin E Acetate Cap PO SCH ×2 (08:37→17:52)
[2021-11-10] MEDS: Multivitamins with Iron/Calcium/Folic Acid/Minerals Tab PO SCH (08:37)
[2021-11-10] MEDS: Desvenlafaxine 50 MG Tab.ER PO SCH (08:37)
[2021-11-10] MEDS: Aspirin 325 MG Tab.EC PO SCH ×2 (08:37→20:15)
[2021-11-10] MEDS: Ferrous Sulfate 325 MG Tab PO SCH (08:38)
[2021-11-10] MEDS: Ascorbic Acid 500 MG Tab PO SCH (08:38)
[2021-11-10] MEDS: Gabapentin 300 MG Cap PO SCH (08:38)
[2021-11-10] MEDS: Carboxymethylcellulose Sodium 0.5% Ophth Soln 15 ML Bottle EYERT SCH ×2 (08:41→20:15)
[2021-11-10] MEDS: amLODIPine 5 MG Tab PO SCH (08:47)
[2021-11-10] MEDS: Acetaminophen 325 MG Tab PO SCH ×3 (08:47→20:16)
[2021-11-10] MEDS: Mirtazapine 15 MG Tab PO SCH (20:16)
[2021-11-10] MEDS: ClonazePAM 1 MG Tab PO PRN (20:17)
[2021-11-10] MEDS: Diclofenac Sodium 1% Gel 100 GM Tube TOP PRN (21:30)
[2021-11-11] MEDS: Pantoprazole 40 MG Tab.CR PO SCH (05:54)
[2021-11-11] MEDS: Lutein/Minerals/Vitamin C/Vitamin E Acetate Cap PO SCH ×2 (09:00→17:56)
[2021-11-11] MEDS: Aspirin 325 MG Tab.EC PO SCH ×2 (09:22→22:12)
[2021-11-11] MEDS: Ferrous Sulfate 325 MG Tab PO SCH (09:23)
[2021-11-11] MEDS: Carboxymethylcellulose Sodium 0.5% Ophth Soln 15 ML Bottle EYERT SCH ×2 (09:23→22:13)
[2021-11-11] MEDS: Gabapentin 300 MG Cap PO SCH (09:26)
[2021-11-11] MEDS: amLODIPine 5 MG Tab PO SCH (09:27)
[2021-11-11] MEDS: Multivitamins with Iron/Calcium/Folic Acid/Minerals Tab PO SCH (09:27)
[2021-11-11] MEDS: Acetaminophen 325 MG Tab PO SCH ×3 (09:27→22:13)
[2021-11-11] MEDS: Desvenlafaxine 50 MG Tab.ER PO SCH (09:27)
[2021-11-11] MEDS: Ascorbic Acid 500 MG Tab PO SCH (09:28)
[2021-11-11] MEDS: Mirtazapine 15 MG Tab PO SCH (22:13)
[2021-11-11] MEDS: ClonazePAM 1 MG Tab PO PRN (22:14)
[2021-11-12] MEDS: Pantoprazole 40 MG Tab.CR PO SCH (05:10)
[2021-11-12] MEDS: Lutein/Minerals/Vitamin C/Vitamin E Acetate Cap PO SCH ×2 (08:40→17:38)
[2021-11-12] MEDS: Aspirin 325 MG Tab.EC PO SCH ×2 (08:40→21:55)
[2021-11-12] MEDS: Gabapentin 300 MG Cap PO SCH (08:40)
[2021-11-12] MEDS: Acetaminophen 325 MG Tab PO SCH ×3 (08:40→21:56)
[2021-11-12] MEDS: Ferrous Sulfate 325 MG Tab PO SCH (08:40)
[2021-11-12] MEDS: Multivitamins with Iron/Calcium/Folic Acid/Minerals Tab PO SCH (08:40)
[2021-11-12] MEDS: Ascorbic Acid 500 MG Tab PO SCH (08:41)
[2021-11-12] MEDS: Desvenlafaxine 50 MG Tab.ER PO SCH (08:42)
[2021-11-12] MEDS: amLODIPine 5 MG Tab PO SCH (08:42)
[2021-11-12] MEDS: Carboxymethylcellulose Sodium 0.5% Ophth Soln 15 ML Bottle EYERT SCH ×2 (08:44→21:55)
[2021-11-12] MEDS: guaiFENesin/Dextromethorphan 100-10 MG/5 ML Soln 5 ML Cup PO PRN ×3 (10:00→19:16)
[2021-11-12] MEDS: oxyCODONE 5 MG Tab PO PRN (10:06)
[2021-11-12] MEDS: Mirtazapine 15 MG Tab PO SCH (21:58)
[2021-11-13] MEDS: Pantoprazole 40 MG Tab.CR PO SCH (06:12)
[2021-11-13] MEDS: guaiFENesin/Dextromethorphan 100-10 MG/5 ML Soln 5 ML Cup PO PRN ×4 (06:32→22:10)
[2021-11-13] MEDS: Desvenlafaxine 50 MG Tab.ER PO SCH (08:43)
[2021-11-13] MEDS: Lutein/Minerals/Vitamin C/Vitamin E Acetate Cap PO SCH ×2 (08:43→17:18)
[2021-11-13] MEDS: Multivitamins with Iron/Calcium/Folic Acid/Minerals Tab PO SCH (08:44)
[2021-11-13] MEDS: Acetaminophen 325 MG Tab PO SCH ×3 (08:44→21:07)
[2021-11-13] MEDS: Ferrous Sulfate 325 MG Tab PO SCH (08:45)
[2021-11-13] MEDS: Carboxymethylcellulose Sodium 0.5% Ophth Soln 15 ML Bottle EYERT SCH ×2 (08:45→21:08)
[2021-11-13] MEDS: Aspirin 325 MG Tab.EC PO SCH ×2 (08:45→21:07)
[2021-11-13] MEDS: Ascorbic Acid 500 MG Tab PO SCH (08:45)
[2021-11-13] MEDS: amLODIPine 5 MG Tab PO SCH (08:45)
[2021-11-13] MEDS: Loperamide 2 MG Cap PO PRN (08:48)
[2021-11-13] MEDS: Gabapentin 300 MG Cap PO SCH (08:48)
[2021-11-13] MEDS: Mirtazapine 15 MG Tab PO SCH (21:08)
[2021-11-13] MEDS: oxyCODONE 5 MG Tab PO PRN (21:08)
[2021-11-13] MEDS: Diclofenac Sodium 1% Gel 100 GM Tube TOP PRN (21:54)
[2021-11-14] MEDS: Loperamide 2 MG Cap PO PRN ×2 (02:35→08:17)
[2021-11-14] MEDS: Pantoprazole 40 MG Tab.CR PO SCH (05:52)
[2021-11-14] MEDS: Multivitamins with Iron/Calcium/Folic Acid/Minerals Tab PO SCH (08:18)
[2021-11-14] MEDS: Desvenlafaxine 50 MG Tab.ER PO SCH (08:18)
[2021-11-14] MEDS: guaiFENesin/Dextromethorphan 100-10 MG/5 ML Soln 5 ML Cup PO PRN ×3 (08:18→18:24)
[2021-11-14] MEDS: Gabapentin 300 MG Cap PO SCH (08:18)
[2021-11-14] MEDS: Ascorbic Acid 500 MG Tab PO SCH (08:18)
[2021-11-14] MEDS: Carboxymethylcellulose Sodium 0.5% Ophth Soln 15 ML Bottle EYERT SCH ×2 (08:18→20:37)
[2021-11-14] MEDS: Acetaminophen 325 MG Tab PO SCH ×3 (08:18→20:37)
[2021-11-14] MEDS: Ferrous Sulfate 325 MG Tab PO SCH (08:19)
[2021-11-14] MEDS: Lutein/Minerals/Vitamin C/Vitamin E Acetate Cap PO SCH ×2 (08:19→18:24)
[2021-11-14] MEDS: Aspirin 325 MG Tab.EC PO SCH ×2 (08:19→20:37)
[2021-11-14] MEDS: amLODIPine 5 MG Tab PO SCH (08:19)
[2021-11-14] MEDS: Mirtazapine 15 MG Tab PO SCH (20:37)
[2021-11-14] MEDS: Diclofenac Sodium 1% Gel 100 GM Tube TOP SCH (20:39)
[2021-11-15] MEDS: Pantoprazole 40 MG Tab.CR PO SCH (06:00)
[2021-11-15] MEDS: Loperamide 2 MG Cap PO PRN (06:30)
[2021-11-15] MEDS: oxyCODONE 5 MG Tab PO PRN ×2 (08:45→22:13)
[2021-11-15] MEDS: Lutein/Minerals/Vitamin C/Vitamin E Acetate Cap PO SCH ×2 (08:45→17:53)
[2021-11-15] MEDS: Acetaminophen 325 MG Tab PO SCH ×3 (08:45→20:23)
[2021-11-15] MEDS: Aspirin 325 MG Tab.EC PO SCH ×2 (08:46→20:24)
[2021-11-15] MEDS: Ascorbic Acid 500 MG Tab PO SCH (08:46)
[2021-11-15] MEDS: amLODIPine 5 MG Tab PO SCH (08:46)
[2021-11-15] MEDS: Gabapentin 300 MG Cap PO SCH (08:46)
[2021-11-15] MEDS: Multivitamins with Iron/Calcium/Folic Acid/Minerals Tab PO SCH (08:47)
[2021-11-15] MEDS: Ferrous Sulfate 325 MG Tab PO SCH (08:47)
[2021-11-15] MEDS: guaiFENesin/Dextromethorphan 100-10 MG/5 ML Soln 5 ML Cup PO PRN ×3 (08:47→17:53)
[2021-11-15] MEDS: Carboxymethylcellulose Sodium 0.5% Ophth Soln 15 ML Bottle EYERT SCH ×2 (08:47→20:24)
[2021-11-15] MEDS: Desvenlafaxine 50 MG Tab.ER PO SCH (08:47)
[2021-11-15] MEDS: Diclofenac Sodium 1% Gel 100 GM Tube TOP SCH ×2 (08:48→20:32)
[2021-11-15] MEDS: Mirtazapine 15 MG Tab PO SCH (20:25)
[2021-11-16] MEDS: Pantoprazole 40 MG Tab.CR PO SCH (05:41)
[2021-11-16] MEDS: Loperamide 2 MG Cap PO PRN (05:41)
[2021-11-16] MEDS: Aspirin 325 MG Tab.EC PO SCH ×2 (08:13→20:20)
[2021-11-16] MEDS: Gabapentin 300 MG Cap PO SCH (08:13)
[2021-11-16] MEDS: Lutein/Minerals/Vitamin C/Vitamin E Acetate Cap PO SCH ×2 (08:13→17:00)
[2021-11-16] MEDS: Desvenlafaxine 50 MG Tab.ER PO SCH (08:13)
[2021-11-16] MEDS: Acetaminophen 325 MG Tab PO SCH ×3 (08:13→20:21)
[2021-11-16] MEDS: guaiFENesin/Dextromethorphan 100-10 MG/5 ML Soln 5 ML Cup PO PRN ×3 (08:14→20:22)
[2021-11-16] MEDS: Ascorbic Acid 500 MG Tab PO SCH (08:14)
[2021-11-16] MEDS: Carboxymethylcellulose Sodium 0.5% Ophth Soln 15 ML Bottle EYERT SCH ×2 (08:14→20:20)
[2021-11-16] MEDS: Ferrous Sulfate 325 MG Tab PO SCH (08:14)
[2021-11-16] MEDS: Multivitamins with Iron/Calcium/Folic Acid/Minerals Tab PO SCH (08:14)
[2021-11-16] MEDS: amLODIPine 5 MG Tab PO SCH (08:14)
[2021-11-16] MEDS: Diclofenac Sodium 1% Gel 100 GM Tube TOP SCH ×2 (08:15→20:21)
[2021-11-16] MEDS: Mirtazapine 15 MG Tab PO SCH (20:20)
[2021-11-16] MEDS: ClonazePAM 1 MG Tab PO PRN (20:22)
[2021-11-17] MEDS: Pantoprazole 40 MG Tab.CR PO SCH (06:19)
[2021-11-17 07:35] VITALS: PULSE 85
[2021-11-17] MEDS: Loperamide 2 MG Cap PO PRN (07:49)
[2021-11-17] MEDS: Lutein/Minerals/Vitamin C/Vitamin E Acetate Cap PO SCH (07:49)
[2021-11-17] MEDS: amLODIPine 5 MG Tab PO SCH (08:00)
[2021-11-17] MEDS: Aspirin 325 MG Tab.EC PO SCH (08:00)
[2021-11-17] MEDS: Gabapentin 300 MG Cap PO SCH (08:00)
[2021-11-17] MEDS: Multivitamins with Iron/Calcium/Folic Acid/Minerals Tab PO SCH (08:00)
[2021-11-17] MEDS: Ascorbic Acid 500 MG Tab PO SCH (08:00)
[2021-11-17] MEDS: Desvenlafaxine 50 MG Tab.ER PO SCH (08:01)
[2021-11-17] MEDS: Ferrous Sulfate 325 MG Tab PO SCH (08:01)
[2021-11-17] MEDS: Acetaminophen 325 MG Tab PO SCH ×2 (08:01→13:45)
[2021-11-17 08:05] VITALS: BP 165/80
[2021-11-17] MEDS: Carboxymethylcellulose Sodium 0.5% Ophth Soln 15 ML Bottle EYERT SCH (08:05)
[2021-11-17] MEDS: Diclofenac Sodium 1% Gel 100 GM Tube TOP SCH (08:06)
[2021-11-17] MEDS: guaiFENesin/Dextromethorphan 100-10 MG/5 ML Soln 5 ML Cup PO PRN (08:11)
== END 2021-11-17 14:00 | disposition home health service (06) | DRG 561 ==
LOC: FB.MS 11:48
PROVIDERS: ADMIT Family Medicine; ATTEND Family Medicine
DX: S72.142D Displaced intertrochanteric fracture of left femur, subsequent encounter for closed fracture with routine healing (principal); L85.3 Xerosis cutis; R29.810 Facial weakness; H91.90 Unspecified hearing loss, unspecified ear; I10 Essential (primary) hypertension; R32 Unspecified urinary incontinence; F41.9 Anxiety disorder, unspecified; F32.A Depression, unspecified; E66.9 Obesity, unspecified; D64.9 Anemia, unspecified; Z97.0 Presence of artificial eye; Z87.820 Personal history of traumatic brain injury; Z88.0 Allergy status to penicillin; Z88.1 Allergy status to other antibiotic agents; Z79.82 Long term (current) use of aspirin; Z79.899 Other long term (current) drug therapy; Z87.440 Personal history of urinary (tract) infections; Z98.49 Cataract extraction status, unspecified eye; Z68.34 Body mass index [BMI] 34.0-34.9, adult
CPT/HCPCS: 36415; 85025; 93971-LT; 97110-GO; 97110-GP; 97112-GP; 97116-GP; 97161-GP; 97166-GO; 97530-GO; 97530-GP; 97535-GO; 97761-GO; 99305; 99307; 99308; 99315; A9270-GY; Q0162

== ENCOUNTER 2023-01-13 18:11 | Observation (INO) | payer MEDICARE ==
[2023-01-13] MEDS ORDERED: Sodium Chloride 0.9% 10 ML Syringe FLUSH PRN (18:24)
[2023-01-13 18:42] LABS: BASOPHILS ABSOLUTE AUTO 0.1 x10-3/uL (0.0-0.1); BASOPHILS PERCENT AUTO 1.2 % (0.2-1.5); EOSINOPHILS ABSOLUTE AUTO 0.2 x10-3/uL (0.0-0.8); EOSINOPHILS PERCENT AUTO 1.7 % (0.6-8.1); HEMATOCRIT 31.5 % (34.2-48.2); HEMOGLOBIN 10.1 g/dL (11.4-15.5); LYMPHOCYTES ABSOLUTE AUTO 1.6 x10-3/uL (1.0-4.4); LYMPHOCYTES PERCENT AUTO 14.7 % (18.4-52.1); MEAN CORPUSCULAR HEMOGLOBIN 26.7 pg (23.9-33.9); MEAN CORPUSCULAR HGB CONC 31.9 g/dL (31.9-34.8); MEAN CORPUSCULAR VOLUME 83.8 fL (76.7-100.5); MEAN PLATELET VOLUME 8.2 fL (7.1-12.4); MONOCYTES ABSOLUTE AUTO 1.1 x10-3/uL (0.3-1.0); MONOCYTES PERCENT AUTO 9.5 % (4.4-15.7); NEUTROPHILS ABSOLUTE AUTO 8.1 x10-3/uL (1.5-6.3); NEUTROPHILS PERCENT AUTO 72.9 % (30.8-76.2); PLATELET COUNT,PLT 538 x10(3)uL (151-488); RED BLOOD CELL COUNT 3.76 x10(6)uL (3.60-5.20); RED CELL DISTRIBUTION WIDTH 15.9 % (12.3-16.5); WHITE BLOOD CELL COUNT,WBC 11.1 x10-3/uL (3.0-10.3)
[2023-01-13 18:46] LABS: BLOOD UREA NITROGEN,BUN 15 mg/dL (7-18); CALCIUM 9.3 mg/dL (8.6-10.2); CARBON DIOXIDE,CO2 32 mmol/L (21-32); CHLORIDE,CL 98 mmol/L (100-110); ESTIMATED GFR 58 mL/min (>60); GLUCOSE RANDOM 158 mg/dL (80-116); POTASSIUM,K 3.4 mmol/L (3.5-5.3); SODIUM,NA 138 mmol/L (135-145)
[2023-01-13 18:51] LABS: A/G RATIO 0.9; ALANINE AMINOTRANSFERASE,ALT 18 U/L (12-36); ALBUMIN 3.4 g/dL (3.2-4.6); ALKALINE PHOSPHATASE 156 IU/L (56-112); ASPARTATE AMNIOTRANSFERASE,AST 20 IU/L (5-25); BILIRUBIN TOTAL 0.2 mg/dL (0.1-1.3); PROTEIN TOTAL,TP 7.2 g/dL (6.0-8.0)
[2023-01-13 18:54] LABS: LACTIC ACID 1.1 mmol/L (0.4-2.0)
[2023-01-13 19:52] LABS: APPEARANCE,URINE SLIGHTLY CLOUDY (CLEAR); BACTERIA,URINE MODERATE (NS); BILIRUBIN,URINE NEGATIVE (NEGATIVE); COLOR,URINE YELLOW (YELLOW); GLUCOSE,URINE NORMAL (NORMAL); KETONES,URINE NEGATIVE (NEGATIVE); LEUKOCYTE ESTERASE,URINE NEGATIVE (NEGATIVE); MUCUS,URINE MODERATE (NS); NITRITE,URINE NEGATIVE (NEGATIVE); OCCULT BLOOD,URINE NEGATIVE (NEGATIVE); PROTEIN,URINE TRACE mg/dL (NEGATIVE); RBC,URINE 0-5 (0-5); SQUAMOUS EPITHELIAL CELLS,UR MODERATE (NS,R,O); UROBILINOGEN,URINE NORMAL (NEGATIVE); WBC,URINE 0-5 (0-5)
[2023-01-13] MEDS ORDERED: Sennosides/Docusate Sodium 50-8.6 MG Tab PO PRN ×2 (20:30→20:37)
[2023-01-13] MEDS ORDERED: Acetaminophen 325 MG Tab PO PRN (20:30)
[2023-01-13] MEDS ORDERED: Ondansetron 4 MG/2 ML SDV IV PRN (20:30)
[2023-01-13] MEDS ORDERED: ClonazePAM 1 MG Tab PO PRN (20:37)
[2023-01-13] MEDS ORDERED: Magnesium Hydroxide 400 MG/5 ML Susp 30 ML Cup PO PRN (20:37)
[2023-01-13] MEDS ORDERED: Loperamide 2 MG Cap PO PRN (20:37)
[2023-01-13] MEDS ORDERED: oxyCODONE 5 MG Tab PO PRN (20:37)
[2023-01-13] MEDS ORDERED: Diclofenac Sodium 1% Gel 100 GM Tube TOP PRN (20:37)
[2023-01-13] MEDS ORDERED: Potassium Chloride 20 MEQ Tab.ER PO STA (20:40)
[2023-01-13] MEDS ORDERED: NS + KCl 20mEq/L 1,000 ML IV SCH (20:45)
[2023-01-13] MEDS ORDERED: Aspirin 325 MG Tab.EC PO SCH (21:00)
[2023-01-13] MEDS ORDERED: Mirtazapine 15 MG Tab PO SCH (21:00)
[2023-01-13] MEDS ORDERED: Carboxymethylcellulose Sodium 0.5% Ophth Soln 15 ML Bottle EYERT SCH (21:00)
[2023-01-13] MEDS ORDERED: LORazepam 2 MG/ML SDV IVPUSH PRN (21:59)
[2023-01-13] MEDS ORDERED: Enoxaparin 40 MG/0.4 ML Syringe SUBCUT SCH (22:00)
[2023-01-13] MEDS ORDERED: Ketorolac 30 MG/ML SDV IVPUSH PRN (22:00)
[2023-01-14 06:38] LABS: BASOPHILS ABSOLUTE AUTO 0.1 x10-3/uL (0.0-0.1); BASOPHILS PERCENT AUTO 1.2 % (0.2-1.5); EOSINOPHILS ABSOLUTE AUTO 0.3 x10-3/uL (0.0-0.8); EOSINOPHILS PERCENT AUTO 4.2 % (0.6-8.1); HEMATOCRIT 27.1 % (34.2-48.2); HEMOGLOBIN 8.8 g/dL (11.4-15.5); LYMPHOCYTES ABSOLUTE AUTO 1.9 x10-3/uL (1.0-4.4); LYMPHOCYTES PERCENT AUTO 23.6 % (18.4-52.1); MEAN CORPUSCULAR HEMOGLOBIN 26.9 pg (23.9-33.9); MEAN CORPUSCULAR HGB CONC 32.4 g/dL (31.9-34.8); MEAN CORPUSCULAR VOLUME 83.1 fL (76.7-100.5); MEAN PLATELET VOLUME 8.4 fL (7.1-12.4); MONOCYTES PERCENT AUTO 12.7 % (4.4-15.7); NEUTROPHILS ABSOLUTE AUTO 4.8 x10-3/uL (1.5-6.3); NEUTROPHILS PERCENT AUTO 58.3 % (30.8-76.2); PLATELET COUNT,PLT 443 x10(3)uL (151-488); RED BLOOD CELL COUNT 3.26 x10(6)uL (3.60-5.20); RED CELL DISTRIBUTION WIDTH 15.4 % (12.3-16.5); WHITE BLOOD CELL COUNT,WBC 8.2 x10-3/uL (3.0-10.3)
[2023-01-14 06:49] LABS: A/G RATIO 0.9; ALANINE AMINOTRANSFERASE,ALT 15 U/L (12-36); ALBUMIN 2.8 g/dL (3.2-4.6); ALKALINE PHOSPHATASE 129 IU/L (56-112); ASPARTATE AMNIOTRANSFERASE,AST 17 IU/L (5-25); BILIRUBIN TOTAL 0.2 mg/dL (0.1-1.3); BLOOD UREA NITROGEN,BUN 12 mg/dL (7-18); BUN/CREATININE RATIO 17.1 (9-20); CALCIUM 8.5 mg/dL (8.6-10.2); CARBON DIOXIDE,CO2 30 mmol/L (21-32); CHLORIDE,CL 103 mmol/L (100-110); CREATININE 0.7 mg/dL (0.55-1.02); EST CRCL DRUG DOSING (CG) 59.04 mL/min; ESTIMATED GFR 90 mL/min (>60); GLUCOSE RANDOM 105 mg/dL (80-116); POTASSIUM,K 3.8 mmol/L (3.5-5.3); PROTEIN TOTAL,TP 6.1 g/dL (6.0-8.0); SODIUM,NA 140 mmol/L (135-145)
[2023-01-14] MEDS ORDERED: Multivitamins with Iron/Calcium/Folic Acid/Minerals Tab PO SCH (09:00)
[2023-01-14] MEDS ORDERED: Ferrous Sulfate 325 MG Tab PO SCH (09:00)
[2023-01-14] MEDS ORDERED: Desvenlafaxine 50 MG Tab.ER PO SCH (09:00)
[2023-01-14] MEDS ORDERED: Gabapentin 300 MG Cap PO SCH (09:00)
[2023-01-14] MEDS ORDERED: Pantoprazole 40 MG Tab.CR PO SCH (09:00)
[2023-01-14] MEDS ORDERED: Ascorbic Acid 500 MG Tab PO SCH (09:00)
[2023-01-14] MEDS ORDERED: amLODIPine 5 MG Tab PO SCH (09:00)
[2023-01-14 15:08] VITALS: BP 120/50; PULSE 77
== END 2023-01-14 14:20 | disposition home or self-care (01) ==
LOC: FB.ED 18:11 → FB.MS 20:30
PROVIDERS: ADMIT Emergency Medicine; ATTEND Family Medicine
DX: R41.0 Disorientation, unspecified (principal); R29.6 Repeated falls; E87.6 Hypokalemia; L89.90 Pressure ulcer of unspecified site, unspecified stage; I10 Essential (primary) hypertension; F41.9 Anxiety disorder, unspecified; E66.9 Obesity, unspecified; L89.112 Pressure ulcer of right upper back, stage 2; F32.A Depression, unspecified; R53.1 Weakness; Z87.820 Personal history of traumatic brain injury; Z97.0 Presence of artificial eye; Z87.81 Personal history of (healed) traumatic fracture; Z79.82 Long term (current) use of aspirin; Z79.899 Other long term (current) drug therapy; Z88.0 Allergy status to penicillin; Z88.6 Allergy status to analgesic agent; Z88.8 Allergy status to other drugs, medicaments and biological substances; Z98.49 Cataract extraction status, unspecified eye; Z96.649 Presence of unspecified artificial hip joint; Z68.28 Body mass index [BMI] 28.0-28.9, adult
CPT/HCPCS: 36415; 70450; 71045; 72070; 72100; 73522; 80053; 81001; 82550; 83605; 84484; 85025; 93005; 96365; 96366; 96372; A9270; G0378; J1650; J3480; 99222; 99238; 99285

== ENCOUNTER 2023-09-08 23:37 | Emergency (ER) | payer MEDICARE ==
[2023-09-08 23:48] VITALS: BP 111/54; PULSE 69
[2023-09-09] MEDS: guaiFENesin 600 MG Tab.ER PO ONE (00:02)
[2023-09-09] MEDS: Ibuprofen 600 MG Tab PO ONE (00:47)
[2023-09-09] MEDS ORDERED: Sodium Chloride 0.9% 10 ML Syringe FLUSH PRN (02:03)
[2023-09-09 02:31] LABS: BASOPHILS PERCENT AUTO 0.2 % (0.2-1.5); EOSINOPHILS PERCENT AUTO 0.1 % (0.6-8.1); HEMATOCRIT 36.9 % (34.2-48.2); HEMOGLOBIN 12.1 g/dL (11.4-15.5); LYMPHOCYTES ABSOLUTE AUTO 0.7 x10-3/uL (1.0-4.4); LYMPHOCYTES PERCENT AUTO 9.1 % (18.4-52.1); MEAN CORPUSCULAR HEMOGLOBIN 28.6 pg (23.9-33.9); MEAN CORPUSCULAR HGB CONC 32.9 g/dL (31.9-34.8); MEAN CORPUSCULAR VOLUME 86.9 fL (76.7-100.5); MEAN PLATELET VOLUME 8.3 fL (7.1-12.4); MONOCYTES ABSOLUTE AUTO 0.9 x10-3/uL (0.3-1.0); MONOCYTES PERCENT AUTO 12.1 % (4.4-15.7); NEUTROPHILS ABSOLUTE AUTO 5.9 x10-3/uL (1.5-6.3); NEUTROPHILS PERCENT AUTO 78.5 % (30.8-76.2); PLATELET COUNT,PLT 190 x10(3)uL (151-488); RED BLOOD CELL COUNT 4.25 x10(6)uL (3.60-5.20); RED CELL DISTRIBUTION WIDTH 14.2 % (12.3-16.5); WHITE BLOOD CELL COUNT,WBC 7.5 x10-3/uL (3.0-10.3)
[2023-09-09 02:38] LABS: BLOOD UREA NITROGEN,BUN 18 mg/dL (7-18); BUN/CREATININE RATIO 25.7 (9-20); CALCIUM 8.6 mg/dL (8.6-10.2); CARBON DIOXIDE,CO2 26 mmol/L (21-32); CHLORIDE,CL 95 mmol/L (100-110); CREATININE 0.7 mg/dL (0.55-1.02); ESTIMATED GFR 89 mL/min (>60); GLUCOSE RANDOM 120 mg/dL (80-116); SODIUM,NA 129 mmol/L (135-145)
[2023-09-09 02:43] LABS: A/G RATIO 0.9; ALANINE AMINOTRANSFERASE,ALT 38 U/L (12-36); ALBUMIN 3.2 g/dL (3.2-4.6); ALKALINE PHOSPHATASE 147 IU/L (56-112); ASPARTATE AMNIOTRANSFERASE,AST 21 IU/L (5-25); BILIRUBIN TOTAL 0.3 mg/dL (0.1-1.3); PROTEIN TOTAL,TP 6.7 g/dL (6.0-8.0)
[2023-09-09 02:45] LABS: INR 1.01 (1.00-1.24); PROTHROMBIN TIME 10.5 sec (9.0-11.1); PTT,PARTIAL THROMBOPLSTIN TIME 32.5 SECONDS (24.4-33.2)
== END 2023-09-09 04:25 ==
LOC: FB.ED 23:37
DX: S72.141A Displaced intertrochanteric fracture of right femur, initial encounter for closed fracture (principal); I10 Essential (primary) hypertension; E66.9 Obesity, unspecified; Z79.01 Long term (current) use of anticoagulants; Z79.899 Other long term (current) drug therapy; Z88.0 Allergy status to penicillin; Z88.1 Allergy status to other antibiotic agents; W18.2XXA Fall in (into) shower or empty bathtub, initial encounter; Y92.002 Bathroom of unspecified non-institutional (private) residence as the place of occurrence of the external cause
CPT/HCPCS: 72100; 72170; 73552-RT; 73590-RT; 80053; 85025; 85610; 85730; 99285; A9270-GY

== ENCOUNTER 2023-09-14 07:47 | Inpatient (IN) | payer MEDICARE ==
[2023-09-14] MEDS ORDERED: Polyethylene Glycol 3350 Powder 17 GM Packet PO PRN (11:26)
[2023-09-14] MEDS ORDERED: Bisacodyl 10 MG Supp RECTAL PRN (11:31)
[2023-09-14] MEDS: Acetaminophen 500 MG Tab PO SCH (14:43)
[2023-09-14] MEDS: Benzonatate 100 MG Cap PO SCH (14:43)
[2023-09-14] MEDS: Apixaban 5 MG Tab PO SCH (20:45)
[2023-09-14] MEDS: Cholecalciferol (Vitamin D3) 25 MCG Tab PO SCH (20:45)
[2023-09-14] MEDS: Melatonin 3 MG Tab PO SCH (20:47)
[2023-09-14] MEDS: Loperamide 2 MG Cap PO PRN (22:15)
[2023-09-15] MEDS: oxyCODONE 5 MG Tab PO PRN (03:57)
[2023-09-15] MEDS: Gabapentin 600 MG Tab PO SCH (08:24)
[2023-09-15] MEDS: Lutein/Minerals/Vitamin C/Vitamin E Acetate Cap PO SCH (08:24)
[2023-09-15] MEDS: Desvenlafaxine 50 MG Tab.ER PO SCH (08:24)
[2023-09-16] MEDS: guaiFENesin 100 MG/5 ML Soln 5 ML UD Cup PO PRN (03:10)
[2023-09-16] MEDS ORDERED: Benzocaine/Cetylpyridinium/Menthol Lozenge MUCMEM PRN (09:59)
[2023-09-16] MEDS: Ibuprofen 200 MG Tab PO PRN (13:20)
[2023-09-16] MEDS: Benzonatate 100 MG Cap PO SCH (13:21)
[2023-09-18] MEDS: Carboxymethylcellulose Sodium 0.5% Ophth Soln 15 ML Bottle EYEBOTH PRN (12:06)
[2023-09-18] MEDS: Lutein/Minerals/Vitamin C/Vitamin E Acetate Cap PO SCH (12:06)
[2023-09-21] MEDS: ClonazePAM 0.5 MG Tab PO PRN (12:12)
[2023-09-21 12:39] VITALS: BP 140/70; PULSE 70
== END 2023-09-21 13:10 | disposition home or self-care (01) | DRG 561 ==
LOC: FB.MS 10:35
PROVIDERS: ADMIT Family Medicine; ATTEND Internal Medicine
DX: S72.144D Nondisplaced intertrochanteric fracture of right femur, subsequent encounter for closed fracture with routine healing (principal); E66.9 Obesity, unspecified; F32.A Depression, unspecified; F41.9 Anxiety disorder, unspecified; I10 Essential (primary) hypertension; R41.9 Unspecified symptoms and signs involving cognitive functions and awareness; R29.6 Repeated falls; Z88.0 Allergy status to penicillin; Z88.1 Allergy status to other antibiotic agents; Z97.0 Presence of artificial eye; Z98.49 Cataract extraction status, unspecified eye; Z86.69 Personal history of other diseases of the nervous system and sense organs; Z79.01 Long term (current) use of anticoagulants; Z68.30 Body mass index [BMI] 30.0-30.9, adult; Z79.899 Other long term (current) drug therapy; Z96.649 Presence of unspecified artificial hip joint; Z98.890 Other specified postprocedural states; Z86.718 Personal history of other venous thrombosis and embolism; W01.0XXA Fall on same level from slipping, tripping and stumbling without subsequent striking against object, initial encounter
CPT/HCPCS: 97110-GP; 97116-GP; 97161-GP; 97165-GO; 97530-GO; 99305; 99315; A9270-GY

== ENCOUNTER 2023-09-24 10:14 | Observation (INO) | payer MEDICARE ==
[2023-09-24] MEDS ORDERED: Naloxone 0.4 MG/ML SDV IVPUSH PRN ×2 (10:41→14:05)
[2023-09-24] MEDS: HYDROmorphone 2 MG/ML SDV IM ONE (10:51)
[2023-09-24] MEDS ORDERED: Acetaminophen 325 MG Tab PO PRN ×2 (14:05→16:36)
[2023-09-24] MEDS: Acetaminophen/HYDROcodone 325-5 MG Tab PO PRN (14:43)
[2023-09-24] MEDS ORDERED: HYDROmorphone 2 MG/ML SDV IM PRN (16:00)
[2023-09-24] MEDS ORDERED: Magnesium Hydroxide 400 MG/5 ML Susp 30 ML Cup PO PRN (16:36)
[2023-09-24] MEDS ORDERED: Ibuprofen 200 MG Tab PO PRN (16:36)
[2023-09-24] MEDS ORDERED: Aluminum Hydroxide/Magnesium Hydroxide Susp 30 ML Cup PO PRN (16:36)
[2023-09-24] MEDS ORDERED: Loperamide 2 MG Cap PO PRN (16:36)
[2023-09-24] MEDS ORDERED: Bisacodyl 10 MG Supp RECTAL PRN (16:36)
[2023-09-24] MEDS ORDERED: ClonazePAM 0.5 MG Tab PO PRN (16:36)
[2023-09-24] MEDS ORDERED: Diclofenac Sodium 1% Gel 100 GM Tube TOP PRN (16:36)
[2023-09-24] MEDS ORDERED: Carboxymethylcellulose Sodium 0.5% Ophth Soln 15 ML Bottle EYEBOTH PRN (16:36)
[2023-09-24] MEDS ORDERED: oxyCODONE 5 MG Tab PO PRN (16:36)
[2023-09-24] MEDS ORDERED: Carbamide Peroxide 6.5% Otic Soln 15 ML Bottle EARBOTH PRN (16:45)
[2023-09-24] MEDS ORDERED: Non-Formulary Medication 1 Each (Vit C/E/Zn/Coppr/Lutein/Zeaxan [Preservision Areds 2 Soft PO SCH (21:00)
[2023-09-24] MEDS: Acetaminophen 500 MG Tab PO SCH (21:39)
[2023-09-24] MEDS: Melatonin 3 MG Tab PO SCH (21:39)
[2023-09-24] MEDS: Cholecalciferol (Vitamin D3) 25 MCG Tab PO SCH (21:41)
[2023-09-24] MEDS: Apixaban 5 MG Tab PO SCH (21:41)
[2023-09-25] MEDS: Desvenlafaxine 50 MG Tab.ER PO SCH (08:34)
[2023-09-25] MEDS: Lutein/Minerals/Vitamin C/Vitamin E Acetate Cap PO SCH (09:45)
[2023-09-25] MEDS: Saccharomyces Boulardii (Probiotic) 250 MG Cap PO SCH (09:45)
[2023-09-25] MEDS: Gabapentin 300 MG Cap PO SCH (10:05)
[2023-09-25 18:21] LABS: BILIRUBIN,URINE NEGATIVE (NEGATIVE); GLUCOSE,URINE NORMAL (NORMAL); KETONES,URINE NEGATIVE (NEGATIVE); LEUKOCYTE ESTERASE,URINE LARGE (NEGATIVE); NITRITE,URINE POSITIVE (NEGATIVE); OCCULT BLOOD,URINE MODERATE (NEGATIVE); PROTEIN,URINE TRACE mg/dL (NEGATIVE); UROBILINOGEN,URINE NORMAL (NEGATIVE)
[2023-09-25 18:23] LABS: APPEARANCE,URINE SLIGHTLY CLOUDY (CLEAR); COLOR,URINE YELLOW (YELLOW); SQUAMOUS EPITHELIAL CELLS,UR OCCASIONAL (NS,R,O)
[2023-09-25 18:24] LABS: BACTERIA,URINE MODERATE (NS)
[2023-09-26] MEDS: guaiFENesin 100 MG/5 ML Soln 5 ML UD Cup PO PRN (02:03)
[2023-09-26 06:30] VITALS: BP 143/69; PULSE 69
[2023-09-26] MEDS: Levofloxacin 500 MG Tab PO SCH (09:10)
== END 2023-09-26 09:20 | disposition swing bed (61) ==
LOC: FB.ED 10:14 → FB.MS 15:25
PROVIDERS: ADMIT Family Medicine; ATTEND Family Medicine
DX: M25.551 Pain in right hip (principal); R53.1 Weakness; J34.89 Other specified disorders of nose and nasal sinuses; J40 Bronchitis, not specified as acute or chronic; N39.0 Urinary tract infection, site not specified; E66.9 Obesity, unspecified; F32.A Depression, unspecified; F41.9 Anxiety disorder, unspecified; I10 Essential (primary) hypertension; Z79.899 Other long term (current) drug therapy; Z51.5 Encounter for palliative care; Z79.01 Long term (current) use of anticoagulants; Z98.890 Other specified postprocedural states; Z88.6 Allergy status to analgesic agent; Z88.8 Allergy status to other drugs, medicaments and biological substances; Z88.0 Allergy status to penicillin; Z68.32 Body mass index [BMI] 32.0-32.9, adult
CPT/HCPCS: 71046; 73502-RT; 81001; 87086; 87088; 87186; 96372; 97161-GP; 99222; 99232; 99238; 99284; A9270-GY; G0378; J1170

== ENCOUNTER 2023-09-26 09:20 | Inpatient (IN) | payer MEDICARE ==
[2023-09-26] MEDS ORDERED: Diclofenac Sodium 1% Gel 100 GM Tube TOP PRN (10:09)
[2023-09-26] MEDS ORDERED: Ibuprofen 200 MG Tab PO PRN (10:09)
[2023-09-26] MEDS ORDERED: Loperamide 2 MG Cap PO PRN (10:09)
[2023-09-26] MEDS ORDERED: Acetaminophen 325 MG Tab PO PRN (10:09)
[2023-09-26] MEDS ORDERED: Bisacodyl 10 MG Supp RECTAL PRN (10:09)
[2023-09-26] MEDS ORDERED: Magnesium Hydroxide 400 MG/5 ML Susp 30 ML Cup PO PRN (10:09)
[2023-09-26] MEDS ORDERED: Carbamide Peroxide 6.5% Otic Soln 15 ML Bottle EARBOTH SCH (10:15)
[2023-09-26] MEDS: Acetaminophen 500 MG Tab PO SCH (13:32)
[2023-09-26] MEDS: Lutein/Minerals/Vitamin C/Vitamin E Acetate Cap PO SCH (13:32)
[2023-09-26] MEDS: Acetaminophen/HYDROcodone 325-5 MG Tab PO PRN (13:37)
[2023-09-26] MEDS: Melatonin 3 MG Tab PO SCH (22:00)
[2023-09-26] MEDS: Cholecalciferol (Vitamin D3) 25 MCG Tab PO SCH (22:00)
[2023-09-26] MEDS: Apixaban 5 MG Tab PO SCH (22:00)
[2023-09-27] MEDS: guaiFENesin 100 MG/5 ML Soln 5 ML UD Cup PO PRN (06:30)
[2023-09-27] MEDS: Levofloxacin 500 MG Tab PO SCH (08:35)
[2023-09-27] MEDS: Desvenlafaxine 50 MG Tab.ER PO SCH (08:36)
[2023-09-27] MEDS: Acetaminophen 325 MG Tab PO SCH (08:40)
[2023-09-27] MEDS: Gabapentin 300 MG Cap PO SCH (08:40)
[2023-10-03] MEDS: ClonazePAM 0.5 MG Tab PO PRN (14:46)
[2023-10-05] MEDS: Naproxen 250 MG Tab PO PRN (17:04)
[2023-10-18 08:34] VITALS: BP 164/69; PULSE 76
== END 2023-10-18 13:20 | disposition home or self-care (01) | DRG 948 ==
LOC: FB.MS 09:20
PROVIDERS: ADMIT Family Medicine; ATTEND Internal Medicine
DX: R53.1 Weakness (principal); I10 Essential (primary) hypertension; F41.9 Anxiety disorder, unspecified; F32.A Depression, unspecified; H91.90 Unspecified hearing loss, unspecified ear; Z66 Do not resuscitate; E66.9 Obesity, unspecified; Z96.649 Presence of unspecified artificial hip joint; R21 Rash and other nonspecific skin eruption; Z98.890 Other specified postprocedural states; Z79.01 Long term (current) use of anticoagulants; Z88.0 Allergy status to penicillin; Z88.8 Allergy status to other drugs, medicaments and biological substances; Z79.899 Other long term (current) drug therapy; Z87.440 Personal history of urinary (tract) infections; Z68.33 Body mass index [BMI] 33.0-33.9, adult; Z87.81 Personal history of (healed) traumatic fracture; Z98.49 Cataract extraction status, unspecified eye
CPT/HCPCS: 97110-GP; 97116-GP; 97165-GO; 97530-GO; 97530-GP; 97535-GO; 99305; 99307; 99308; 99315; A9270-GY